=== PATIENT | female | born 1950 | race Hispanic/Latino ===

== ENCOUNTER → 2018-04-06 | Day surgery (SDC) | payer OTHER ==
[2018-04-01 15:40] LABS: BASOPHILS % 0.6 % (0.0-1.0); EOSINOPHILS # (AUTO) 0.1 (0.0-0.4); HEMATOCRIT 38.5 % (34.2-44.1); HEMOGLOBIN 13.2 g/dL (12.0-16.0); LYMPHOCYTES # (AUTO) 2.7 (1.0-3.2); MEAN CORPUSCULAR HEMOGLOBIN 32.1 pg (28-32); MEAN CORPUSCULAR HGB CONC 34.3 g/dL (31-35); MEAN CORPUSCULAR VOLUME 93.7 fL (81-99); MONOCYTES # (AUTO) 0.7 (0.2-0.8); MONOCYTES % 9.9 % (4.4-11.3); NEUTROPHILS # (AUTO) 3.5 (2.1-6.9); NEUTROPHILS % 49.4 % (38.7-80.0); PLATELET COUNT 301 x10e3/uL (140-360); RED BLOOD COUNT 4.11 x10e6/uL (3.6-5.1)
[2018-04-01 16:14] LABS: ANION GAP 13.1 mmol/L (8-16); BLOOD UREA NITROGEN 14 mg/dL (7-26); BUN/CREATININE RATIO 18 (6-25); CALCIUM 9.7 mg/dL (8.4-10.2); CARBON DIOXIDE 26 mmol/L (22-29); CHLORIDE 101 mmol/L (98-107); CREATININE, SERUM 0.79 mg/dL (0.57-1.11); EST GLOMERULAR FILTRATION RATE > 60 ML/MIN (60-); GLUCOSE 89 mg/dL (74-118); POTASSIUM 3.1 mmol/L (3.5-5.1); SODIUM 137 mmol/L (136-145)
--- NOTE | 2018-04-01 17:55 | Diagnostic Imaging Report ---
EXAMINATION: CHEST 2 VIEWS INDICATION: \S\PRE-OP \S\[id number] \S\[id number] COMPARISON: None FINDINGS: PA and lateral views TUBES and LINES: None. LUNGS: Lungs are well inflated. Lungs are clear. There is no evidence of pneumonia or pulmonary edema. PLEURA: No pleural effusion or pneumothorax. HEART AND MEDIASTINUM: The cardiomediastinal silhouette is unremarkable. BONES AND SOFT TISSUES: No acute osseous lesion. Soft tissues are unremarkable. UPPER ABDOMEN: No free air under the diaphragm. IMPRESSION: No acute thoracic abnormality. Signed by: Dr. Olivia Fortune M.D. on 04/01/2018 3:43 PM
[~2018-04-06] MED LIST: BETAMETHASONE DISODIUM PHOS 6 MG/ML VIAL ONE; BUPIVACAINE HCL 0.5% INJ 30 ML VIAL INJ ONE; CEFAZOLIN SOD 1 GM VIAL ONE; DEXAMETHASONE SOD PHOS INJ 4 MG/ML VIAL ONE; FENTANYL CITRATE/PF 100MCG/2 ML INJ ONE; HYDROCHLOROTHIA25 MG; LIDOCAINE HCL 1% LOCAL INJ 20 ML VIAL ONE; LIDOCAINE HCL 2% LOCAL INJ 5 ML SDV VIAL INJ ONE; LOSARTAN POTASS50 MG; MIDAZOLAM HCL 2 MG/2 ML VIAL ONE; MUPIROCIN 2% OINT 22 GM TUBE ONE; ONDANSETRON HCL INJ 2 MG/ML VIAL ONE; PROPOFOL IV EMULSION 10 MG/ML 20 ML VIAL ONE; SEVOFLURANE INHAL SOLN 250 ML PEN BTL ONE
--- NOTE | 2018-04-06 09:07 | Operative Report ---
DATE OF PROCEDURE: April 06, 2018 PREOPERATIVE DIAGNOSES 1. Painful hallux valgus deformity, right foot. 2. Painful contracted hammertoe, 2nd digit, right foot. 3. Painful contracted hammertoe, 3rd digit, right foot. 4. Painful contracted hammertoe, 4th digit, right foot. 5. Painful contracted hammertoe, 5th digit, right foot. POSTOPERATIVE DIAGNOSES 1. Painful hallux valgus deformity, right foot. 2. Painful contracted hammertoe, 2nd digit, right foot. 3. Painful contracted hammertoe, 3rd digit, right foot. 4. Painful contracted hammertoe, 4th digit, right foot. 5. Painful contracted hammertoe, 5th digit, right foot. OPERATIVE PROCEDURES 1. Sam bunionectomy with screw fixation, right. 2. Arthroplasty 2nd, with K-wire fixation 2nd through 4th. 3. Arthroplasty 3rd, with K-wire fixation 2nd through 4th. 4. Arthroplasty 4th, with K-wire fixation 2nd through 4th. 5. Arthroplasty 5th, with K-wire fixation 2nd through 4th. 6. Intraoperative use of fluoroscopy. 7. Trigger point shot of cortisone. 8. Application of posterior splint. ANESTHESIA: General. HEMOSTASIS: Pneumatic thigh tourniquet at 350 mmHg. OPERATIVE PROCEDURE IN DETAIL: Patient was taken into the operating room and placed on the operating room table in the supine position. Following induction of general anesthesia by the anesthesiologist, Webril wraps were placed on the patient's right thigh followed by application of right thigh tourniquet. The right lower extremity was then prepped and draped in the usual aseptic manner. The following procedure was then performed: PROCEDURE #1: Sam bunionectomy with screw fixation, right foot. Attention was directed to the dorsomedial aspect of the 1st MPJ where a 6 cm linear incision was performed. The incision was deepened down to the joint capsule. Longitudinal capsulotomy was then performed exposing the dorsomedial exostosis of the 1st metatarsal head. Via use of an oscillating saw, dorsomedial exostosis was excised from the operation site in toto. A V-osteotomy was then performed from medial to lateral. Capital fragment was then transpositioned laterally. Upon adequate surgical and anatomical reduction utilizing proper AO technique, a 2 x 14 mm cortical screw in conjunction with a buried 0.045 K-wire was used to achieve stability at the osteotomy site. All redundant bone medially was excised via the use of an oscillating saw and rotating bur. PROCEDURES: #2-5: Arthroplasty, 2nd through 5th with K-wire fixation, 2nd through 4th. Attention was then directed to the dorsal aspect of the above-mentioned toes where a 3 cm linear incision was performed. Incision was deepened down to the joint capsule. Transverse capsulotomy was then performed exposing the head of the proximal phalanx. Via the use of an oscillating saw, the head of the proximal phalanxes were excised from the operation site in toto. The 2nd through 4th toes were still noted to be contracted, so a 0.045 K-wire was introduced crossing the proximal interphalangeal joint and the metatarsophalangeal joint to achieve proper anatomical reduction. PROCEDURE #6: Intraoperative use of fluoroscopy was then used to make sure proper alignment and fixation was achieved. Closure was then obtained utilizing 3-0 Vicryl, 4-0 Vicryl and 4-0 nylon for capsule, subcutaneous tissue and skin respectively after properly and copiously flushing the areas with saline. PROCEDURE #7: Trigger point shot of cortisone was then given to the 1st and 4th interspace of the right foot. Approximately, 15 mL of 0.5% plain Marcaine plus 5 mL of 1% Xylocaine plain were then used to achieve local anesthesia to the above-mentioned surgical area. Sterile dressing was applied. Upon release of the thigh tourniquet, blood hyperemia was noted immediate to all digits of the patient's right foot. PROCEDURE #8: Application of posterior splint. A properly placed posterior splint was then applied keeping the foot at 90 degrees with respect to the leg to try to prevent any type of postop complications. The patient was then transferred from the OR to the recovery room with vital signs stable and neurovascular status intact. No intraoperative complications were encountered. Blood loss from the surgery was minimal. The patient is to remain nonweightbearing with the aid of crutches. Keep her foot elevated, and is to apply an ice pack to the ankle joint area. Job#: [id number] HETAL
--- NOTE | 2018-04-06 09:11 | Diagnostic Imaging Report ---
PROCEDURE:X-RAY RIGHT FOOT, TWO VIEWS COMPARISON:None. INDICATIONS:POST OPERATIVE RIGHT FOOT BUNIONECTOMY FINDINGS: Overlying cast obscures bony detail. There has been prior Hallux Valgus correction. A screw and K wire fixation has been performed across the first metatarsal. Additional K wires are seen across the second through fourth phalanges and terminating overlying the proximal second through fourth metatarsals. Hardware appears intact and no evidence of malalignment. CONCLUSION: Post surgical changes status post Hallux Valgus correction/fixation as above. Hardware appears intact and alignment appears unremarkable. Dictated by: ANNEMARIE HARRY M.D. on 04/06/2018 at 9:17 Electronically approved by: ANNEMARIE HARRY M.D. on 04/06/2018 at 9:17
[2018-04-06 09:40] VITALS: BP 135/76
== END | disposition home or self-care (01) ==
LOC: OR 06:02
PROVIDERS: ATTEND Podiatrist Foot Surgery
DX: M20.11 Hallux valgus (acquired), right foot (principal); M20.41 Other hammer toe(s) (acquired), right foot; M79.671 Pain in right foot; G47.33 Obstructive sleep apnea (adult) (pediatric); I10 Essential (primary) hypertension; E66.01 Morbid (severe) obesity due to excess calories; Z91.013 Allergy to seafood; Z01.810 Encounter for preprocedural cardiovascular examination; Z01.812 Encounter for preprocedural laboratory examination; Z01.811 Encounter for preprocedural respiratory examination
CPT/HCPCS: 28285 ×4; 28298; 36415 ×2; 71046; 73620; 80048; 84132; 85025; 93005; C1713; J0690; J0720; J1100; J2001 ×2; J2250; J2405

== ENCOUNTER → 2018-07-27 | Day surgery (SDC) | payer OTHER ==
[2018-07-25 15:41] LABS: BASOPHILS % 0.5 % (0.0-1.0); EOSINOPHILS # (AUTO) 0.1 (0.0-0.4); EOSINOPHILS % 1.7 % (0.0-6.0); HEMATOCRIT 40.6 % (34.2-44.1); HEMOGLOBIN 13.6 g/dL (12.0-16.0); LYMPHOCYTES # (AUTO) 2.7 (1.0-3.2); LYMPHOCYTES % 46.7 % (18.0-39.1); MEAN CORPUSCULAR HEMOGLOBIN 32.2 pg (28-32); MEAN CORPUSCULAR HGB CONC 33.5 g/dL (31-35); MONOCYTES # (AUTO) 0.8 (0.2-0.8); MONOCYTES % 13.7 % (4.4-11.3); NEUTROPHILS # (AUTO) 2.1 (2.1-6.9); NEUTROPHILS % 37.2 % (38.7-80.0); PLATELET COUNT 277 x10e3/uL (140-360); RED BLOOD COUNT 4.23 x10e6/uL (3.6-5.1); RED CELL DISTRIBUTION WIDTH 12.8 % (11.7-14.4)
[2018-07-25 16:06] LABS: ANION GAP 13.5 mmol/L (8-16); BLOOD UREA NITROGEN 10 mg/dL (7-26); BUN/CREATININE RATIO 12 (6-25); CALCIUM 9.5 mg/dL (8.4-10.2); CARBON DIOXIDE 25 mmol/L (22-29); CHLORIDE 107 mmol/L (98-107); CREATININE, SERUM 0.82 mg/dL (0.57-1.11); EST GLOMERULAR FILTRATION RATE > 60 ML/MIN (60-); GLUCOSE 100 mg/dL (74-118); POTASSIUM 4.5 mmol/L (3.5-5.1); SODIUM 141 mmol/L (136-145)
[~2018-07-27] MED LIST changes: +AMLODIPINE BESYL5 MG PO; -CEFAZOLIN SOD 1 GM VIAL ONE; +CEFAZOLIN SOD 2 GM/D5W 50ML 50 ML IV ONE; +MEPERIDINE HCL INJ 50 MG/ML INJ ONE; +METOCLOPRAMIDE HCL 10 MG/2ML VIAL ONE; -MIDAZOLAM HCL 2 MG/2 ML VIAL ONE
--- OUTSIDE RECORDS SUMMARY | 2018-07-27 05:31 | XMS REPORT | Continuity of Care Document ---
Author Author [facility] Interface Address Unknown Phone Unavailable Problems Problem Status Onset Date Classification Date Reported Comments Source Other abnormal and inconclusive findings on diagnostic imaging of breast 11/11/2017 02/09/2018 [facility] ABN MAMMO Active 10/28/2017 [facility] Encounter for screening mammogram for malignant neoplasm of breast 10/26/2017 01/28/2018 [facility] Autoimmune hepatitis 10/23/2017 01/24/2018 [facility] ROUTINE Z12.31 Active 10/18/2017 [facility] SCREENING Active 10/18/2017 [facility] K75.4 AUTOIMMUNE HEPATITIS Active 10/13/2017 [facility] ENCOUNTER FOR OTH SCREENING FOR MALIGNAN Active [facility] OTH ABN AND INCONCLUSIVE FINDINGS ON DX Active [facility] Medications Medication Details Route Status Patient Instructions Ordering Provider Order Date Source Allergies, Adverse Reactions, Alerts Substance Category Reaction Severity Reaction type Status Date Reported Comments Source Immunizations Immunization Date Given Site Status Last Updated Comments Source Results Order Name Results Value Reference Range Date Interpretation Comments Source Breast Complete Uni US Breast Complete Uni US COMPLETE ULTRASOUND OF LEFT BREAST AND AXILLA: 11/03/2017 CLINICAL: /R92.8 Other Abnormal And Inconclusive Findings On Diagnostic Imaging Of Breast. COMPARISON:Comparison is made to exam dated: 11/03/2017 mammogram - [facility]. TECHNIQUE: Color flow and real-time ultrasound of the left breast four quadrants and axilla regions were performed. Amin scale images of the real-time examination were reviewed. FINDINGS: There are small benign cysts left breast at 5 and 10 o'clock. There also is a benign coarse calcification left breast at 2 o'clock. No abnormalities were seen sonographically in the left breast or the left axilla. IMPRESSION: BENIGN RECOMMENDATION:There is no sonographic evidence of malignancy. A 1 year screening mammogram is recommended.(11/04/2018) This exam was interpreted at [id number] for [facility], [place]. Víctor Grimes M.D. ap/penrad:11/03/2017 13:48:48 [place] Electronic(s): Lana Sebastian, [facility] letter sent: BI-RADS 1/2 Ultrasound BI-RADS: 2 Benign 11/03/2017 - - Read by: Víctor Grimes MD Dictated Date/time: 11/03/17 13:48 Electronically Signed by: Víctor Grimes MD 11/03/17 13:48 FINAL REPORT [facility] Breast Mammo Diag UNI incl CAD MA Breast Mammo Diag UNI incl CAD MA UNILATERAL LEFT DIGITAL DIAGNOSTIC MAMMOGRAM: 11/03/2017 CLINICAL: /R92.8 Other Abnormal And Inconclusive Findings On Diagnostic Imaging Of Breast. COMPARISON:Comparison is made to exams dated: 10/22/2017 mammogram - [facility], 09/26/2012 mammogram - [facility], 09/04/2011 mammogram, 07/29/2011 mammogram, 06/23/2010 mammogram - [facility], and 09/26/2012 ultrasound - [facility]. TECHNIQUE: Mammographic views were obtained using digital acquisition. FINDINGS: There are scattered fibroglandular densities in left breast. Magnification views demonstrate a stable cluster of faint calcifications at left 2 o'clock. These are unchanged on magnification views dating back to 2010 and are consistent with benign calcifications. No significant masses, calcifications, or other findings are seen in the breast. There has been no significant interval change. IMPRESSION: BENIGN RECOMMENDATION:There is no mammographic evidence of malignancy. A 1 year screening mammogram is recommended.(11/04/2018) This exam was interpreted at [id number] for [facility] [place], [place]. SUMMARY: Ultrasound will be performed at this time; please see dedicated separate report. Víctor Grimes M.D. ap/:11/03/2017 13:46:02 [place] Electronic(s): Brenda Min, [facility] Mammogram BI-RADS: 2 Benign 11/03/2017 - - Read by: Víctor Grimes MD Dictated Date/time: 11/03/17 13:46 Electronically Signed by: Víctor Grimes MD 11/03/17 13:46 FINAL REPORT [facility] Breast Mammo Scrn MARY ANN incl CAD MA Breast Mammo Scrn MARY ANN incl CAD MA BILATERAL DIGITAL SCREENING MAMMOGRAM WITH CAD: 10/22/2017 CLINICAL: /Z12.31 Encounter For Screening Mammogram For Malignant Neoplasm Of Breast. Current study was evaluated with a Computer Aided Detection (CAD) system. COMPARISON:Comparison is made to exam dated: 09/26/2012 mammogram - [facility]. Current study contains 5 films. TECHNIQUE: Mammographic views were obtained using digital acquisition. [employer] Version 1.1 was utilized for computer aided detection. FINDINGS: There are scattered fibroglandular densities in both breasts. There are benign appearing vascular calcifications in both breasts. There also are benign appearing scattered calcifications in both breasts. Additionally, there are post operative findings and a biopsy clip in the left breast. There is a mole marker on the right breast. There are mole markers on the left breast. There is a cluster of 1 mm amorphous calcifications in the left breast at 4 o'clock middle depth which appear new or at least increased. No other significant masses, calcifications, or other findings are seen in either breast. IMPRESSION: INCOMPLETE: NEEDS ADDITIONAL IMAGING EVALUATION RECOMMENDATION:The cluster of 1 mm calcifications in the left breast has a differential diagnosis of DCIS, fat necrosis, or sclerosing adenosis and is indeterminate. Mediolateral, lateral magnification, and spot magnification views as well as a possible ultrasound are recommended. This exam was interpreted at [id number] for [facility], [place]. Lemuel Joy sns/:10/22/2017 16:03:24 [employer] Electronic(s): Brenda Min [facility] letter sent: BI-RADS 0 Mammogram BI-RADS: 0 Indeterminate 10/22/2017 - - Read by: Lemuel Joy MD Dictated Date/time: 10/22/17 16:03 Electronically Signed by: Lemuel Joy MD 10/22/17 16:03 FINAL REPORT [facility] Abdomen complete US Abdomen complete US Clinical Indication: - K75.4 Autoimmune hepatitis. Comparison: None. TECHNIQUE: Grayscale and limited color sonographic evaluation of the abdomen was performed with standard technique. FINDINGS: LIVER: The visualized liver shows normal contour. There is normal liver size, based on sonography. There is normal liver parenchymal echotexture. The portal vein region appears unremarkable. BILE DUCTS: The intrahepatic and extrahepatic bile ducts are not dilated with the common bile duct measuring 5 mm. There are no definite ductal stones or wall thickening noted. The distal common bile duct is not well seen. GALLBLADDER: There are no gallstones, gallbladder sludge, pericholecystic fluid or wall thickening. PANCREAS: The visualized pancreas appears unremarkable. SPLEEN: The spleen is unremarkable and measures 8 cm. KIDNEYS: The right kidney measures 10.3 cm in length. The left kidney measures 10.5 cm in length. There is normal renal contour and morphology, with normal parenchymal echotexture. There is no hydronephrosis. AORTA AND INFERIOR VENA CAVA: The visualized abdominal aorta and inferior vena cava appear unremarkable. ASCITES: There is no visualized abdominal ascites. IMPRESSION: 1. Unremarkable abdominal ultrasound. SL: RADHAASERAimeeM 10/18/2017 - - Read by: Eric Valdes MD Dictated Date/time: 10/18/17 08:47 Electronically Signed by: Eric Valdes MD 10/18/17 08:49 FINAL REPORT [facility] Vital Signs Vital Sign Value Date Comments Source Encounters Location Location Details Encounter Type Encounter Number Reason For Visit Attending Provider ADM Date DC Date Status Source [facility] Outpatient [id number] Ryland Trinh 10/18/2017 10/19/2017 [facility] Outpatient [id number] Regis Bhatti 10/22/2017 10/23/2017 [facility] Outpatient [id number] Regis Bhatti 11/03/2017 11/04/2017 [facility] Procedures Procedure Code Date Perfomer Comments Source
[2018-07-27 10:15] VITALS: BP 124/64
--- NOTE | 2018-07-27 10:36 | Diagnostic Imaging Report ---
EXAM: FOOT LEFT AP LAT DATE: 07/27/2018 8:59 AM INDICATION: Postoperative, pain COMPARISON: None FINDINGS: Bandage material partially obscures detail. Bunionectomy and first metatarsal osteotomy changes present with pinning of the second through fourth toes. Lisfranc alignment intact. IMPRESSION: Postsurgical foot. Signed by: Dr. Declan Field MD on 07/27/2018 10:33 AM
--- NOTE | 2018-07-27 10:45 | Operative Report ---
DATE OF PROCEDURE: July 27, 2018 PREOPERATIVE DIAGNOSES 1. Painful hallux valgus deformity, left foot. 2. Painful contracted hammertoe, 2nd digit, left foot. 3. Painful contracted hammertoe, 3rd digit, left foot. 4. Painful contracted hammertoe, 4th digit, left foot. 5. Painful contracted hammertoe, 5th digit, left foot. POSTOPERATIVE DIAGNOSES 1. Painful hallux valgus deformity, left foot. 2. Painful contracted hammertoe, 2nd digit, left foot. 3. Painful contracted hammertoe, 3rd digit, left foot. 4. Painful contracted hammertoe, 4th digit, left foot. 5. Painful contracted hammertoe, 5th digit, left foot. OPERATIVE PROCEDURES 1. Sam bunionectomy with screw fixation, left foot. 2. Arthroplasty, 2nd digit with Anel wire fixation 2nd through 4th toes, left foot. 3. Arthroplasty, 3rd digit with Anel wire fixation 2nd through 4th toes, left foot. 4. Arthroplasty, 4th digit with Anel wire fixation 2nd through 4th toes, left foot. 5. Arthroplasty, 5th digit with Anel wire fixation 2nd through 4th toes, left foot. 6. Intraoperative use of fluoroscopy. 7. Trigger point shot of cortisone. 8. Application of posterior splint. ANESTHESIA: General. HEMOSTASIS: Pneumatic thigh tourniquet at 350 mmHg. PROCEDURE IN DETAIL: Patient was taken into the operating room and placed on the operating room table in the supine position. Following induction of general anesthesia by the anesthesiologist, Webril wraps were placed on the patient's left thigh followed by application of left thigh tourniquet. The left lower extremity was then prepped and draped in the usual aseptic manner. The following procedure was then performed. PROCEDURE #1: Sam bunionectomy with screw fixation, left foot. Attention was directed to the dorsomedial aspect of the 1st MPJ joint where a 6 cm linear incision was performed. The incision was deepened down to the joint capsule. Longitudinal capsulotomy was then performed exposing a dorsomedial exostosis to the 1st metatarsal head. Via the use of an oscillating saw, dorsomedial exostosis was excised from the operation site in toto. A V-osteotomy was then performed from medial to lateral. Capital fragment was inserted transitioned laterally upon adequate surgical and anatomical reduction utilizing proper AO technique. A 2 x 16 mm cortical screw in conjunction with a buried 0.045 K-wire was used to achieve stability of the osteotomy site. All redundant bone medial was excised via use of an oscillating saw and rotating bur. PROCEDURES #2-5: Arthroplasty, 2nd through 5th with K-wire fixation, 2nd through 4th. Attention was then directed to the above-mentioned toes overlying the proximal interphalangeal joint where a 3 cm linear incision was performed. Incision was deepened down to the joint capsule. Transverse capsulotomy was then performed exposing the head of the proximal phalanx. Via the use of an oscillating saw, the head of the proximal phalanxes were excised from the operation site in toto. All rough and bony edges were rasped smooth. Second through 4th toes were still noted to be contracted. So a 0.045 K-wire was introduced crossing the metatarsophalangeal joint to achieve proper anatomical reduction. PROCEDURE #6: Intraoperative use of fluoroscopy was then used to make sure proper alignment and fixation was also achieved. Closure was then obtained utilizing 3-0 Vicryl, 4-0 Vicryl and 4-0 nylon for capsule, subcutaneous tissue and skin respectively after properly and copiously flushing the areas with saline. PROCEDURE #7: Trigger point shot of cortisone was then given to the 1st and 4th interspace of the left foot. Then approximately 15-16 mL of 0.5% plain Marcaine plus 5-10 mL of 1% Xylocaine were used to achieve local anesthesia to the above-mentioned surgical area. Sterile dressing was applied. Upon release of the thigh tourniquet, blood hyperemia was noted to be immediate to all digits of the patient's left foot. PROCEDURE #8: Application of posterior splint. A properly placed posterior splint was then applied keeping the foot at 90 degrees with respect to the leg to try to prevent any type of postop complications. Patient was then transferred from the OR to the recovery room with vital signs stable and neurovascular status intact. No intraoperative complications were encountered. Blood loss from the surgery was minimal. Patient is to remain nonweightbearing with aid the crutches. Keep her foot elevated. Is to apply an ice pack to the ankle joint area. Job#: [id number] [place]
== END | disposition home or self-care (01) ==
LOC: OR 05:28
PROVIDERS: ATTEND Podiatrist Foot Surgery
DX: M20.12 Hallux valgus (acquired), left foot (principal); M20.42 Other hammer toe(s) (acquired), left foot; G47.33 Obstructive sleep apnea (adult) (pediatric); I10 Essential (primary) hypertension; Z91.013 Allergy to seafood; Z01.810 Encounter for preprocedural cardiovascular examination; Z01.812 Encounter for preprocedural laboratory examination; Z86.19 Personal history of other infectious and parasitic diseases
CPT/HCPCS: 28285 ×4; 28296; 36415; 73620; 80048; 85025; 93005; C1713 ×2; J0690; J0720; J1100; J2001 ×2; J2175; J2405; J2704; J2765

== ENCOUNTER → 2019-12-13 | Day surgery (SDC) | payer OTHER ==
[2019-12-07 12:53] LABS: BASOPHILS % 0.5 % (0.0-1.0); EOSINOPHILS # (AUTO) 0.3 (0.0-0.4); HEMATOCRIT 40.6 % (34.2-44.1); HEMOGLOBIN 13.8 g/dL (12.0-16.0); LYMPHOCYTES # (AUTO) 2.3 (1.0-3.2); LYMPHOCYTES % 37.2 % (18.0-39.1); MEAN CORPUSCULAR HEMOGLOBIN 32.6 pg (28-32); MONOCYTES # (AUTO) 0.7 (0.2-0.8); MONOCYTES % 10.8 % (4.4-11.3); NEUTROPHILS % 47.3 % (38.7-80.0); PLATELET COUNT 302 x10e3/uL (140-360); RED BLOOD COUNT 4.23 x10e6/uL (3.6-5.1); RED CELL DISTRIBUTION WIDTH 13.1 % (11.7-14.4)
[2019-12-07 13:13] LABS: ALANINE AMINOTRANSFERASE 30 IU/L (0-55); ALBUMIN 3.9 g/dL (3.5-5.0); ALBUMIN/GLOBULIN RATIO 0.8 (0.8-2.0); ALKALINE PHOSPHATASE 85 IU/L (40-150); ANION GAP 12.2 mmol/L (8-16); BLOOD UREA NITROGEN 12 mg/dL (7-26); BUN/CREATININE RATIO 16 (6-25); CALCIUM 9.5 mg/dL (8.4-10.2); CARBON DIOXIDE 28 mmol/L (22-29); CHLORIDE 104 mmol/L (98-107); CREATININE, SERUM 0.76 mg/dL (0.57-1.11); EST GLOMERULAR FILTRATION RATE > 60 ML/MIN (60-); GLUCOSE 81 mg/dL (74-118); POTASSIUM 4.2 mmol/L (3.5-5.1); SODIUM 140 mmol/L (136-145)
--- NOTE | 2019-12-07 13:18 | Diagnostic Imaging Report ---
X-ray chest PA and lateral Comparison: 04/01/2018 History: Preop for urology. Findings: Central airways unremarkable. Heart size normal. Minimal atherosclerosis of aorta. Other mediastinal lines, stripes, interfaces unremarkable. No pleural effusion. No pneumothorax. There is a 19 mm x 29 mm opacity in the right lower lung zone. It has smooth margins and no visualized calcifications. It wasn't well-visualized on the previous exam. It requires further evaluation for exam chest CT. Lung brumfield otherwise unremarkable. Visualized skeletal structures and upper abdomen unremarkable. Extrathoracic soft tissues unremarkable. Impression: Roughly oval opacity in the left midlung to lower lung zone as described, more noticeable compared with the exam of March 28, 2018. A CT scan of the chest should be considered. Signed by: Ricardo Rodriguez MD on 12/07/2019 1:14 PM
[~2019-12-13] MED LIST changes: +ANTIBIOTIC; +B&O 60MG R/S 60 MG SUPP PR ONE; -BETAMETHASONE DISODIUM PHOS 6 MG/ML VIAL ONE; -BUPIVACAINE HCL 0.5% INJ 30 ML VIAL INJ ONE; +CEFAZOLIN SOD 1 GM/NS 50ML 100 ML IV ONE; -CEFAZOLIN SOD 2 GM/D5W 50ML 50 ML IV ONE; +IOPAMIDOL 300MG/ML 50ML INFUS..BTL IV ONE; -LIDOCAINE HCL 1% LOCAL INJ 20 ML VIAL ONE; +LOSARTAN POTAS100 MG PO; -MEPERIDINE HCL INJ 50 MG/ML INJ ONE; -METOCLOPRAMIDE HCL 10 MG/2ML VIAL ONE; -MUPIROCIN 2% OINT 22 GM TUBE ONE; -ONDANSETRON HCL INJ 2 MG/ML VIAL ONE; +ONDANSETRON HCL INJ 2MG/ML 2ML 2 MG/ML VIAL ONE
[2019-12-13 12:30] VITALS: BP 118/65
--- NOTE | 2019-12-13 16:12 | Diagnostic Imaging Report ---
PROCEDURE: Fluoroscopic guidance of retrograde pyelogram COMPARISON: None. INDICATION: Urinary obstruction Radiation Details: Fluoroscopy time: 0.4 minutes Cumulative dose: 11.3 mGy DISCUSSION: Fluoroscopic guidance was provided for retrograde pyelogram performed by Dr. Adames. Images demonstrate opacification of both collecting systems and ureters without evidence of filling defect or injury. CONCLUSION: Normal appearance of collecting systems and ureters without dilation, filling defect, or injury. Signed by: Heidi Bridges MD on 12/13/2019 4:08 PM
--- NOTE | 2019-12-14 22:05 | Operative Report ---
DATE OF PROCEDURE: 12/13/2019 SURGEON: Brendon Adames MD ANESTHESIOLOGIST: Staff. ANESTHESIA: General. FINDINGS: The patient had two very large blood vessels in the bladder extending from the trigone area and bladder neck all the way up to the dome of the bladder posteriorly. 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 Bladder capacity was 550 mL. The glomerulation and petechiae were noted in the anterior wall of the bladder and the right side of the bladder neck. The patient also had grade 1 trabeculation with small cellules. The patient also showed the bladder to be at the level of the introitus grabbing a position to cystocele. The vaginal cuff was also weak. The posterior wall of the vagina was normal as well as the lateral kenyon. PROCEDURE IN DETAIL: With the patient on the operating table under general anesthetic, I walked into the operating table and asked for a time-out. Time-out was given. We all agreed with the procedure as planned and the subject on the table. Examination was done then and findings as dictated above. I used a #22-Kittitian cystourethroscope with the 12 and 70-degree angle lens. Retrograde pyelogram was done using a #8 cone-tip ureteral catheter, injecting contrast media retrograde up to both kidneys. No filling defects were seen. No hydronephrosis or hydroureter. Cystitis cystica was identified. Hydrodistention was done x2. Findings are dictated above. The cup biopsy forceps was used to obtain multiple bladder biopsies of the areas in question and they were sent in for identification and mast cell count. At that point, the Bugbee electrode was used to electrofulgurate the biopsy sites, the two hemangiomas, and the large varicosity veins inside the bladder. She also had a couple of polyps in the bladder neck and I also electrofulgurated this. At this point, the patient bladder was filled. The patient was then taken to the recovery room in satisfactory condition. DISCHARGE INSTRUCTIONS: She was given Keflex, Ditropan XL and tramadol to take as needed. She was instructed to return to my office in 2 weeks to check the urine. At that point, I will have the pathology report. I think that at this point. She also has interstitial cystitis, so as a postoperative diagnosis of interstitial cystitis. MD YENI Zepeda/IRVINL /[id number]
== END | disposition home or self-care (01) ==
LOC: OR 08:45
PROVIDERS: ATTEND Urology
DX: N39.46 Mixed incontinence (principal); D18.09 Hemangioma of other sites; N30.80 Other cystitis without hematuria; R31.29 Other microscopic hematuria; N32.89 Other specified disorders of bladder; I86.2 Pelvic varices; D41.4 Neoplasm of uncertain behavior of bladder; I10 Essential (primary) hypertension; E66.9 Obesity, unspecified; Z91.013 Allergy to seafood; Z01.810 Encounter for preprocedural cardiovascular examination; Z01.812 Encounter for preprocedural laboratory examination; Z01.818 Encounter for other preprocedural examination; Z11.59 Encounter for screening for other viral diseases
CPT/HCPCS: 36415; 52214; 71046; 74420; 80053; 85025; 87086; 87186; 87635; 88305; 88313; 93005; C1758; J0690; J1100; J2001; J2405; J2704; J3010; Q9967